=== PATIENT | female | born 1985 | race Two or more races ===

== ENCOUNTER 2020-05-04 16:36 | Emergency (ER) | payer SELFPAY ==
[~2020-05-04] VITALS: Ht 157.5 cm; Wt 68.0 kg
[2020-05-04 16:40] VITALS: BP 124/59
[2020-05-04 17:23] LABS: BILIRUBIN,URINE NEGATIVE (NEG); CLARITY,URINE CLEAR; COLOR,URINE YELLOW; NITRITE,URINE NEGATIVE (NEG); PH,URINE 6.5 (<5.0-8.0); PROTEIN,URINE NEGATIVE (NEG-TRACE)
--- NOTE | 2020-05-04 17:24 | PHYS DOC ---
Past Medical History Past Medical History: No Pertinent History (ROBERT GRIDER APRN) Past Surgical History: Cholecystectomy (ROBERT GRIDER APRN) Smoking Status: Never Smoker Alcohol Use: None (ROBERT GRIDER APRN) General Adult EDM: Chief Complaint: ABDOMINAL PAIN HPI: HPI: Patient is a 34 year old Italian-speaking female presenting to the ED today complaining of 8 out of 10 bilateral lower abdominal pain described as pressure, symptoms began 1 week ago. Denies anything specifically exacerbating or relieving her symptoms. Denies any nausea or vomiting. She states her last menstrual cycle was March 31, 2020, she states she is a 8 para 8. Denies vaginal bleeding today. Propagator line used for Italian. (ROBERT GRIDER APRN) Review of Systems: Review of Systems: Constitutional: Denies fever or chills. [] Eyes: Denies change in visual acuity. [] HENT: Denies nasal congestion or sore throat. [] Respiratory: Denies cough or shortness of breath. [] Cardiovascular: Denies chest pain or edema. [] GI: Reports low abdominal pain, denies nausea, vomiting, bloody stools or diarrhea. [] : Denies dysuria. [] Musculoskeletal: Denies back pain or joint pain. [] Integument: Denies rash. [] Neurologic: Denies headache, focal weakness or sensory changes. [] Psychiatric: Denies depression or anxiety. [] (ROBERT GRIDER APRN) Heart Score: Risk Factors: Risk Factors: DM, Current or recent (<one month) smoker, HTN, HLP, family history of CAD, obesity. Risk Scores: Score 0 - 3: 2.5% MACE over next 6 weeks - Discharge Home Score 4 - 6: 20.3% MACE over next 6 weeks - Admit for Clinical Observation Score 7 - 10: 72.7% MACE over next 6 weeks - Early Invasive Strategies (ROBERT GRIDER APRN) Allergies: Allergies: Allergies Coded Allergies Type Severity Reaction Last Updated Verified No Known Drug Allergies 05/04/20 No (ROBERT GRIDER APRN) Physical Exam: PE: Constitutional: Well developed, well nourished, no acute distress, non-toxic appearance. [] HENT: Normocephalic, atraumatic, bilateral external ears normal, oropharynx moist, no oral exudates, nose normal. [] Eyes: PERRLA, EOMI, conjunctiva normal, no discharge. [] Neck: Normal range of motion, no tenderness, supple, no stridor. [] Cardiovascular:Heart rate regular rhythm, no murmur [] Lungs & Thorax: Bilateral breath sounds clear to auscultation [] Abdomen: Bowel sounds normal, soft, no tenderness, no masses, no pulsatile masses. [] Skin: Warm, dry, no erythema, no rash. [] Back: No tenderness, no CVA tenderness. [] Extremities: No tenderness, no cyanosis, no clubbing, ROM intact, no edema. [] Neurologic: Alert and oriented X 3, normal motor function, normal sensory function, no focal deficits noted. [] Psychologic: Affect normal, judgement normal, mood normal. [] (ROBERT GRIDER APRN) Current Patient Data: Labs: Laboratory Tests Test 05/04/20 16:50 POC Urine HCG, Qualitative Hcg positive (Negative) Vital Signs: Vital Signs Date Time Temp Pulse Resp B/P (MAP) Pulse Ox O2 Delivery O2 Flow Rate FiO2 05/04/20 16:40 98.5 81 18 124/59 (80) 99 Room Air 98.5 (ROBERT GRIDER APRN) EKG: EKG: [] (ROBERT GRIDER APRN) Radiology/Procedures: Radiology/Procedures: []PROCEDURE: OB <14 WKS W/TV US OB <14 WKS +TV History: Reason: abd pain in / Spl. Instructions: / History: Comparison: None. Technique: Grayscale and color Doppler imaging of the pelvis was performed using transabdominal technique. Findings: The uterus measures 9.9 x 5.2 x 4.3 cm. Single intrauterine gestational sac with regular appearance measures 0.34 cm. Yolk sac and pole not identified. Estimated gestational age by ultrasound 5 weeks 0 days. Right ovary not identified due to positioning and overlying structures. No right adnexal mass. Left ovary measures 2.9 x 1.7 x 1.8 cm. Normal Doppler flow to the left ovary. IMPRESSION: 1. Single intrauterine with gestational age 5 weeks 0 days. No pole is identified, may relate to early . Recommend short-term ultrasound follow-up and serial beta-hCG testing. 2. Right maternal ovary not identified. Electronically signed by: Glenn Montes DO (05/04/2020 6:04 PM) [facility] DICTATED and SIGNED BY: GLENN MONTES DO DATE: 05/04/20 [id number] (ROBERT GRIDER APRN) Course & Med Decision Making: Course & Med Decision Making Pertinent Labs and Imaging studies reviewed. (See chart for details) This is a 34-year-old female patient presenting to the ED today with complaints of lower abdominal pain that began a week ago. Last menstrual cycle was March 31, 2020, positive urine hCG, currently 9 para 8. Positive urine hCG, beta-hCG 4097, UA positive for UTI, CBC CMP with no acute findings, OB ultrasound noted for an IUP 5 weeks 0 days. No pole or heart rate, this is likely an early . Recommended close follow-up. Discharge patient on Macrobid. Follow-up with COUNTY AUDITOR. (ROBERT GRIDER APRN) Dragon Disclaimer: Dragon Disclaimer: This electronic medical record was generated, in whole or in part, using a voice recognition dictation system. (ROBERT GRIDER APRN) Departure Departure Impression: Primary Impression: state, incidental Additional Impressions: UTI in Qualified Codes: O23.41 - Unspecified infection of urinary tract in pre gnancy, first trimester Abdominal pain during Qualified Codes: O26.891 - Other specified related conditions, first trimester; R10.9 - Unspecified abdominal pain Disposition: 01 DC HOME SELF CARE/HOMELESS Condition: STABLE Referrals: NO PCP (PCP) EVA QUEEN Jr, MD follow up next week Patient Instructions: ABCs of , Abdominal Pain During , - Urinary Tract Infection Additional Instructions: You were evaluated in the emergency room, you are 5 weeks . Please follow-up with an COUNTY AUDITOR. You also have urinary tract infection, take the prescribed antibiotics until completed. You can take Tylenol for pain. Come back to the ED at any point symptoms worsen. Scripts Nitrofurantoin Monohyd/M-Cryst (MACROBID 100 MG CAPSULE) 100 Mg Capsule 1 CAP PO BID for 7 Days, #14 CAP 0 Refills Prov: ROBERT GRIDER APRN 05/04/20 Attending Signature Attending Signature I have reviewed the PA/INFORMATION SECURITY CONSULTANT's note and plan of care. I was available for consultation as needed during the patient's visit in the emergency department. I agree with the clinical impression, plan, and disposition. (THEO DURHAM DO) ROBERT GRIDER APRN May 04, 2020 17:23 THEO DURHAM DO May 04, 2020 19:02
[2020-05-04 17:28] LABS: BASO % 0 % (0-3); EOS # 0.1 x10^3/uL (0.0-0.7); EOS % 1 % (0-3); HEMATOCRIT 37.6 % (36.0-47.0); HEMOGLOBIN 12.5 g/dL (12.0-15.5); LYMPH # 1.6 x10^3/uL (1.0-4.8); LYMPH % 23 % (24-48); MEAN CORPUSCULAR HEMOGLOBIN 29 pg (25-35); MEAN CORPUSCULAR HGB CONC 33 g/dL (31-37); MEAN CORPUSCULAR VOLUME 88 fL (79-100); MONO # 0.6 x10^3/uL (0.0-1.1); MONO % 9 % (0-9); NEUT # 4.7 x10^3/uL (1.8-7.7); NEUT % 67 % (31-73); PLATELET COUNT 221 x10^3/uL (140-400); RED BLOOD COUNT 4.28 x10^6/uL (3.50-5.40); RED CELL DISTRIBUTION WIDTH 15.4 % (11.5-14.5)
[2020-05-04 17:42] LABS: CALCIUM 8.7 mg/dL (8.5-10.1); CREATININE 0.6 mg/dL (0.6-1.0); GFR 113.1; POTASSIUM 3.8 mmol/L (3.5-5.1)
[2020-05-04 17:43] LABS: BACTERIA,URINE MODERATE /HPF (0-FEW); RBC,URINE 0 /HPF (0-2)
[2020-05-04 17:48] LABS: ALBUMIN 3.7 g/dL (3.4-5.0); ALBUMIN/GLOBULIN RATIO 0.8 (1.0-1.7); TOTAL BILIRUBIN 0.4 mg/dL (0.2-1.0); TOTAL PROTEIN 8.1 g/dL (6.4-8.2)
--- NOTE | 2020-05-04 18:06 | RAD ---
US OB <14 WKS +TV History: Reason: abd pain in / Spl. Instructions: / History: Comparison: None. Technique: Grayscale and color Doppler imaging of the pelvis was performed using transabdominal techn ique. Findings: The uterus measures 9.9 x 5.2 x 4.3 cm. Single intrauterine gestational sac with regular appearance measures 0.34 cm. Yolk sac and pole not identified. Estimated gestational age by ultrasound 5 weeks 0 days. Right ovary not identified due to positioning and overlying structures. No right adnexal mass. Left ovary measures 2.9 x 1.7 x 1.8 cm. Normal Doppler flow to the left ovary. IMPRESSION: 1. Single intrauterine with gestational age 5 weeks 0 days. No pole is identified, m ay relate to early . Recommend short-term ultrasound follow-up and serial beta-hCG testing. 2. Right maternal ovary not identified. Electronically signed by: Glenn Montes DO (05/04/2020 6:04 PM) [facility]
[2020-05-04] MEDS ORDERED: NITR100C62 PO (18:23)
== END 2020-05-04 18:48 | disposition home or self-care (01) ==
LOC: ER 16:36
DX: O23.41 Unspecified infection of urinary tract in pregnancy, first trimester (principal); Z3A.01 Less than 8 weeks gestation of pregnancy; Z90.49 Acquired absence of other specified parts of digestive tract; Z3A.08 8 weeks gestation of pregnancy
CPT/HCPCS: 36415; 76801; 76817; 80053; 81001; 81025; 84702; 85025; 87086; 99284-25